=== PATIENT | male | born 1990 | race Caucasian/White ===

== ENCOUNTER 2018-06-16 05:09 | Emergency (ER) | payer SELFPAY ==
[~2018-06-16] VITALS: Ht 177.8 cm; Wt 86.4 kg
[2018-06-16 05:17] VITALS: BP 119/83
== END 2018-06-16 06:11 | disposition home or self-care (01) ==
LOC: EMS 05:11
DX: N48.22 Cellulitis of corpus cavernosum and penis (principal); L98.499 Non-pressure chronic ulcer of skin of other sites with unspecified severity